=== PATIENT | female | born 1960 | race Caucasian/White ===

== ENCOUNTER 2020-02-13 06:21 | Emergency (ER) | payer OTHER, SELFPAY ==
--- NOTE | ~2020-02-13 | CT_ITS ---
EXAMINATION: CT abdomen pelvis w con DATE: 02/13/2020 11:23 INDICATION: Low back pain, nausea. History of endometrial cancer with metastases. TECHNIQUE: Computed tomography (CT) of the abdomen and pelvis was performed with 100 cc Omnipaque 350 intravenous contrast. Automated exposure control and iterative reconstruction technique were employe d. Exam dose: 322.72 mGy-cm total exam DLP. COMPARISON: None. FINDINGS: The lung bases are clear. Normal heart size. No pericardial or pleural effusion. Small sliding hiatal hernia. There are innumerable hepatic metastases scattered throughout the liver. There is trace ascites, prim arily perihepatic. The gallbladder is present and appears unremarkable. Normal splenic size. No pancr eatic mass lesion or calcification or ductal dilatation. No bile duct dilatation. No adrenal mass lesion. No renal mass lesion. No urinary tract calculus or hydroureteronephrosis. The urinary bladder is unre markable. There is extensive atherosclerotic calcification of the abdominal aorta as well as iliac and femoral artery calcifications. No abdominal aortic aneurysm. There is adenopathy in the left periaortic and left common iliac area. There is soft tissue thickening of the wall of the sigmoid colon. There are sigmoid diverticula. There is pericolic stranding and fluid in the sigmoid area suggesting diverticulitis. No drainable ab scess is identified. No bowel obstruction or intraperitoneal free air is detected. No suspicious osteolytic or osteoblastic lesions are identified. IMPRESSION: Suspected sigmoid diverticulitis Extensive hepatic metastatic disease, left common iliac and periaortic lymphadenopathy, consistent wi th metastatic endometrial cancer by clinical history Small sliding hiatal hernia Reviewed, dictated and finalized at [facility]. Reviewed, dictated and finalized at [facility]. IMPRESSION: Suspected sigmoid diverticulitis Extensive hepatic metastatic disease, left common iliac and periaortic lymphade nopathy, consistent with metastatic endometrial cancer by clinical history Small sliding hiatal hernia
[2020-02-13 06:25] VITALS: BP 111/73; PULSE 106; RESP 18; TEMP 36.1; O2SAT 98
[2020-02-13 07:48] LABS: Basophils Percent Auto 0.2 % (0.2-1.2); Eosinophils Absolute Auto 0.1 K/mm3 (0-0.3); Eosinophils Percent Auto 0.4 % (0-4.4); Hematocrit 33.9 % (37.0-47.0); Hemoglobin 10.8 g/dL (12.0-15.0); Immature Granulocyte Percent A 0.8 % (0-0.5); Lymphocytes Absolute Auto 0.82 K/mm3 (0.9-3.2); Lymphocytes Percent Auto 6.8 % (18.3-44.2); Mean Corpuscular HGB Conc 31.9 g/dl (32-36); Mean Corpuscular Hemoglobin 29.2 pg (26-34); Mean Corpuscular Volume 91.6 fl (80-100); Mean Platelet Volume 8.6 fl (7.4-10.4); Monocytes Absolute Auto 0.9 K/mm3 (0.1-0.6); Monocytes Percent Auto 7.5 % (2.6-8.5); Neutrophils Absolute Auto 10.2 K/mm3 (1.3-6.7); Neutrophils Percent Auto 84.3 % (45.5-73.1); Platelet Count Result 298 k/mm3 (150-375); Red Cell Distribution Width 17.9 % (11.5-14.5); White Blood Count 12.1 K/mm3 (4.5-10.0)
[2020-02-13 07:52] LABS: Add Urine Microscopic? YES; Appearance Urine Clear (Clear); Bacteria Urine Trace /hpf; Bilirubin Urine Negative (Negative); Blood Urine Negative (Negative); Color Urine Yellow (Yellow); Glucose Urine UA Negative (Negative); Ketones Urine Negative (Negative); Leukocyte Esterase Ur Negative LEU/UL (Negative); Mucus Urine Rare /lpf; Nitrate Urine Negative (Negative); Protein Urine 1+ mg/dL (Negative); Specific Grav Ur 1.028 (1.001-1.035); Squamous Epithelial Cell Urine Many /hpf (Few); Urobilinogen Urine Negative mg/dL (<2.0)
[2020-02-13] MEDS: SODIUM CHLORIDE 0.9% IV 1,000 ML 999 ML IV CONT (07:56)
[2020-02-13] MEDS: ONDANSETRON INJ 4 MG/2 ML VIAL IV PUSH ×2 (07:56→12:51)
[2020-02-13 08:01] LABS: Alanine Aminotransferase 57 U/L (4-35); Albumin Level 3.6 g/dL (3.5-5.1); Alkaline Phosphatase 292 U/L (38-126); Aspartate Amino Transferase 83 U/L (14-36); Bilirubin,Total 0.5 mg/dL (0.2-1.3); Blood Urea Nitrogen 13 mg/dL (7-17); Calcium 9.3 mg/dL (8.4-10.2); Carbon Dioxide 29 mmol/L (22-30); Chloride 99 mmol/L (98-107); Estimated Glomerular Filt Rate > 60; Glucose 119 mg/dL (65-105); Lipase 28 U/L (23-300); Potassium 4.4 mmol/L (3.4-5.0); Sodium 134 mmol/L (137-145)
--- NOTE | 2020-02-13 09:58 | ED.GENADULT ---
HPI - General Adult General Chief complaint: Urogenital-Female Stated complaint: lower back pain, nausea Time Seen by Provider: 02/13/20 07:04 History of Present Illness HPI narrative: Patient is a 59-year-old female who presents with couple of issues. Patient has history of metastatic endometrial cancer that is not responding to chemotherapy. Showed worsening metastases on her last scan in late January. She comes in today because she has had decreased urine output with low-grade temperatures and some mild left flank pain. No injury. No abdominal pain. She has chronic pain for which she takes Percocet and she has mild nausea with this for which she takes Zofran. No diarrhea or constipation. Related Data Home Medications Medication Instructions Recorded Confirmed alprazolam 02/13/20 atorvastatin 02/13/20 calcium carbonate-vitamin D3 tablet PO 02/13/20 [Calcium with Vitamin D] [id number]-vit K tablet PO 02/13/20 [Adults Multivitamin] ondansetron HCl 02/13/20 oxycodone-acetaminophen 02/13/20 Allergies Allergy/AdvReac Type Severity Reaction Status Date / Time No Known Allergies Allergy Verified 02/13/20 08:01 Review of Systems Review of Systems: All systems reviewed & are unremarkable except as noted in HPI and below Constitutional: Constitutional: Denies chills, Reports fatigue and Reports fever(s) ENT: Denies nasal congestion and Denies sore throat Respiratory: Respiratory: Denies cough, Denies dyspnea and Denies wheezing Gastrointestinal: Gastrointestinal: Denies abdominal pain, Denies constipation, Denies diarrhea, Reports nausea and Denies vomiting PMFSH Past Medical History Medical History (Updated 02/13/20 @ 12:43 by Marlo Patel MD) Anxiety Endometrial cancer Surgical History Surgical History (Updated 02/13/20 @ 12:41 by Marlo Patel MD) No pertinent past surgical history Social History Social History (Updated 02/13/20 @ 12:41 by Marlo Patel MD) Social History: Nondrinker/non-smoker Exam Narrative: Exam Narrative: GENERAL: Well-appearing, well-nourished, and in no acute distress. HEAD: Normocephalic, atraumatic. ENT: Mucous membranes moist. CHEST: Clear to auscultation. No respiratory distress. HEART: Regular rate and rhythm. Normal peripheral pulses. ABDOMEN: Soft, nontender, nondistended. EXTREMITIES: Normal range of motion. No edema. SKIN: Warm, dry, no rash. NEURO: Alert and oriented x3. Course Course Emergency Course: Patient informed of results. Discharge home. Vital Signs Vital signs: Vital Signs Temperature 96.9 F L 02/13/20 06:25 Pulse Rate 106 H 02/13/20 06:25 Respiratory Rate 18 02/13/20 06:25 Blood Pressure 111/73 02/13/20 06:25 Pulse Oximetry 98 02/13/20 06:25 Temperature 96.9 F L 02/13/20 06:25 Pulse Rate 80 02/13/20 10:00 Respiratory Rate 16 02/13/20 10:00 Blood Pressure 108/74 02/13/20 10:00 Pulse Oximetry 98 02/13/20 10:00 Medical Decision Making Vital Signs Vital Signs: Vital Signs Temperature 96.9 F L 02/13/20 06:25 Pulse Rate 106 H 02/13/20 06:25 Respiratory Rate 18 02/13/20 06:25 Blood Pressure 111/73 02/13/20 06:25 Pulse Oximetry 98 02/13/20 06:25 Temperature 96.9 F L 02/13/20 06:25 Pulse Rate 80 02/13/20 10:00 Respiratory Rate 16 02/13/20 10:00 Blood Pressure 108/74 02/13/20 10:00 Pulse Oximetry 98 02/13/20 10:00 Lab Data Result diagrams: 02/13/20 07:41 02/13/20 07:41 Labs: Lab Results 02/13/20 02/13/20 02/13/20 Range/Units 07:41 07:41 07:41 WBC 12.1 H (4.5-10.0) K/mm3 RBC 3.70 L (4.2-5.4) M/mm3 Hgb 10.8 L (12.0-15.0) g/dL Hct 33.9 L (37.0-47.0) % MCV 91.6 (80-100) fl MCH 29.2 (26-34) pg MCHC 31.9 L (32-36) g/dl RDW 17.9 H (11.5-14.5) % Plt Count 298 (150-375) k/mm3 MPV 8.6 (7.4-10.4) fl Immature Gran % (Auto) 0.8 H (0-0.5)
[2020-02-13 10:00] VITALS: BP 108/74; PULSE 80; RESP 16; O2SAT 98
[2020-02-13 12:30] VITALS: BP 115/74; PULSE 90; RESP 16; O2SAT 98
[2020-02-13] MEDS: MORPHINE SULFATE 4 MG/ML INJ IV PUSH (12:50)
== END 2020-02-13 13:15 | disposition home or self-care (01) ==
PROVIDERS: Emergency Provider Emergency Medicine
DX: K57.92 Diverticulitis of intestine, part unspecified, without perforation or abscess without bleeding (principal); F41.9 Anxiety disorder, unspecified; C54.1 Malignant neoplasm of endometrium; C78.7 Secondary malignant neoplasm of liver and intrahepatic bile duct
CPT/HCPCS: 36415; 74177; 80053; 81001; 83690; 85025; 96361; 96374; 96375; 96376; 99284; J2270; J2405; J7030; Q9967